=== PATIENT | male | born 1965 | race Caucasian/White ===

== ENCOUNTER → 2018-04-18 | Day surgery (SDC) | payer OTHER ==
[2018-04-17 15:04] LABS: BASOPHILS # (AUTO) 0.1 (0.0-0.1); BASOPHILS % 0.8 % (0.0-1.0); EOSINOPHILS # (AUTO) 0.1 (0.0-0.4); EOSINOPHILS % 1.4 % (0.0-6.0); HEMATOCRIT 42.4 % (38.2-49.6); LYMPHOCYTES # (AUTO) 1.4 (1.0-3.2); MONOCYTES # (AUTO) 0.5 (0.2-0.8); MONOCYTES % 7.7 % (4.4-11.3); NEUTROPHILS # (AUTO) 4.5 (2.1-6.9); NEUTROPHILS % 68.8 % (38.7-80.0); PLATELET COUNT 250 x10e3/uL (140-360); RED BLOOD COUNT 4.66 x10e6/uL (4.3-5.7); RED CELL DISTRIBUTION WIDTH 12.1 % (11.7-14.4)
[~2018-04-18] MED LIST: AMIODARONE HCL200 MG; BUPIVACAINE HCL 0.5% INJ 30 ML VIAL INJ ONE; BYSTOLIC10 MG PO; CEFAZOLIN SOD 1 GM VIAL ONE; DEXAMETHASONE SOD PHOS INJ 4 MG/ML VIAL ONE; FENTANYL CITRATE/PF 100MCG/2 ML INJ ONE; KETOROLAC TROMETHAMINE 30 MG/ML VIAL ONE; LIDOCAINE HCL 2% LOCAL INJ 5 ML SDV VIAL INJ ONE; MIDAZOLAM HCL 2 MG/2 ML VIAL ONE; MORPHINE SULFATE INJ 10 MG/ML ONE; NEOSTIGMINE 1 MG/ML 10ML VIAL ONE; ONDANSETRON HCL INJ 2 MG/ML VIAL ONE; PANTOPRAZOLE SO40 MG PO; PROPOFOL IV EMULSION 10 MG/ML 20 ML VIAL ONE; SEVOFLURANE INHAL SOLN 250 ML PEN BTL ONE; XARELTO20 MG; Z.0.LEXAPRO20 MG PO
--- NOTE | 2018-04-18 10:38 | Operative Report ---
DATE OF PROCEDURE: April 18, 2018 CLINICAL INFORMATICS PHYSICIAN: Chris Jerry PA-C The patient was brought to the operating room for induction of anesthesia. Throughout this case, my PA's assistance was necessary for retraction of soft tissue and positioning of the extremity. This allows for efficient and technically successful execution of the operation and is considered medically necessary. PREOPERATIVE DIAGNOSIS: Right ankle trimalleolar fracture. POSTOPERATIVE DIAGNOSIS: Right ankle trimalleolar fracture. PROCEDURE: Open reduction internal fixation of right ankle with syndesmosis repair. INDICATIONS: The patient is a 53-year-old gentleman who has a severe fracture of his right ankle. We have discussed the findings and options and recommend surgical fixation. The risks and benefits were discussed. His presentation is complicated by the fact that he weighs 300 pounds. The added challenges have been discussed. He states he understands and wishes to proceed. DESCRIPTION OF PROCEDURE: The patient was brought to the operating room and placed under general anesthetic. His right lower extremity was prepped and draped in a sterile manner. A preoperative time out was performed. The extremity was exsanguinated and a proximal tourniquet was inflated to 350 mmHg. Initial attention was directed towards the distal fibula. A long incision was made over the lateral aspect of the lower leg. The fracture site was carefully exposed. A lobster claw reduction clamp was used to reduce the fracture. An 8-hole, 3.5 mm dynamic compression plate was placed over the distal fibula. This was gently contoured to the match the flare of the distal fibula. This was fixed with a combination of compression and locking screws. An anterior to posterior lag screw was placed. Some mild displacement persisted due to the fragmentation of the fracture. This wound was irrigated and loosely reapproximated with subcuticular Vicryl. Attention was directed towards the medial malleolus. A curvilinear incision was made over the medial aspect of the ankle. Limited soft tissue stripping was performed. The fracture was debrided and anatomically reduced. This was fixed with 2 partially threaded 40 mm cancellous screws. Intraoperative x-rays were taken. There was a near anatomic reduction of the distal fibula and medial malleolus. There was widening of the medial clear space. I elected to place an Arthrex tight-rope syndesmosis repair system. The endo-button was passed over the medial cortex. The ankle was cycled and tension was applied. Repeat x-ray showed modest improvement in the closer of the medial clear space. Both of the wounds were then irrigated and closed with subcuticular Vicryl and nylon stitches. A well-padded splint was applied. The patient was extubated and transported to the recovery room in stable condition. Blood loss was minimal. All needle and sponge counts were correct. Job#: [id number] BENITO
== END | disposition home or self-care (01) ==
LOC: OR 06:48
PROVIDERS: ATTEND Specialist
DX: S82.851A Displaced trimalleolar fracture of right lower leg, initial encounter for closed fracture (principal); I48.91 Unspecified atrial fibrillation; G47.33 Obstructive sleep apnea (adult) (pediatric); I10 Essential (primary) hypertension; K75.9 Inflammatory liver disease, unspecified; K44.9 Diaphragmatic hernia without obstruction or gangrene; K21.9 Gastro-esophageal reflux disease without esophagitis; W22.8XXA Striking against or struck by other objects, initial encounter; Y92.007 Garden or yard of unspecified non-institutional (private) residence as the place of occurrence of the external cause; Z91.041 Radiographic dye allergy status; Z01.812 Encounter for preprocedural laboratory examination; Z79.02 Long term (current) use of antithrombotics/antiplatelets; Z68.41 Body mass index [BMI] 40.0-44.9, adult; Z86.718 Personal history of other venous thrombosis and embolism
CPT/HCPCS: 27822; 36415; 85025; C1713 ×6; J0690; J1100; J1885; J2001; J2250; J2270; J2405; J2710

== ENCOUNTER → 2018-10-17 | Day surgery (SDC) | payer OTHER ==
[2018-10-16 13:45] LABS: BASOPHILS % 0.6 % (0.0-1.0); EOSINOPHILS # (AUTO) 0.1 (0.0-0.4); EOSINOPHILS % 2.1 % (0.0-6.0); HEMATOCRIT 41.5 % (38.2-49.6); HEMOGLOBIN 13.4 g/dL (14.0-18.0); LYMPHOCYTES # (AUTO) 1.3 (1.0-3.2); MEAN CORPUSCULAR HEMOGLOBIN 29.8 pg (28-32); MEAN CORPUSCULAR HGB CONC 32.3 g/dL (31-35); MEAN CORPUSCULAR VOLUME 92.4 fL (81-99); MONOCYTES # (AUTO) 0.6 (0.2-0.8); MONOCYTES % 11.6 % (4.4-11.3); NEUTROPHILS # (AUTO) 3.2 (2.1-6.9); NEUTROPHILS % 60.5 % (38.7-80.0); PLATELET COUNT 187 x10e3/uL (140-360); RED BLOOD COUNT 4.49 x10e6/uL (4.3-5.7); RED CELL DISTRIBUTION WIDTH 13.1 % (11.7-14.4)
[2018-10-16 13:59] LABS: INR 1.52; PROTHROMBIN TIME 19.6 seconds (11.9-14.5)
[2018-10-16 14:00] LABS: PARTIAL THROMBOPLASTIN TIME 36.7 seconds (23.8-35.5)
[2018-10-16 14:02] LABS: ANION GAP 15.2 mmol/L (8-16); BLOOD UREA NITROGEN 14 mg/dL (7-26); BUN/CREATININE RATIO 12 (6-25); CALCIUM 8.7 mg/dL (8.4-10.2); CARBON DIOXIDE 26 mmol/L (22-29); CHLORIDE 102 mmol/L (98-107); CREATININE, SERUM 1.19 mg/dL (0.72-1.25); EST GLOMERULAR FILTRATION RATE > 60 ML/MIN (60-); GLUCOSE 83 mg/dL (74-118); POTASSIUM 4.2 mmol/L (3.5-5.1); SODIUM 139 mmol/L (136-145)
--- NOTE | 2018-10-16 14:48 | Diagnostic Imaging Report ---
EXAMINATION: PA and lateral views of the chest. COMPARISON: None CLINICAL HISTORY: Preoperative evaluation DISCUSSION: Lines/tubes: None. Lungs: The lungs are well inflated and clear. No pneumonia or pulmonary edema. Pleura: No pleural effusion or pneumothorax. Heart and mediastinum: Cardiomegaly. Bones and soft tissues: No acute bony abnormalities. IMPRESSION: Cardiomegaly without decompensation Signed by: Dr. Mario Ma M.D. on 10/16/2018 2:44 PM
[~2018-10-17] VITALS: Ht 182.9 cm; Wt 136.1 kg
[~2018-10-17] MED LIST changes: +ALBUTEROL SULF 0.083% NEB SOLN 3 ML NEB ONE; -AMIODARONE HCL200 MG; +AMIODARONE HCL200 MG PO; +BENZOCAINE 20% SPR 60 ML CAN ONE; -BUPIVACAINE HCL 0.5% INJ 30 ML VIAL INJ ONE; -CEFAZOLIN SOD 1 GM VIAL ONE; -DEXAMETHASONE SOD PHOS INJ 4 MG/ML VIAL ONE; +FUROSEMIDE40 MG PO; -KETOROLAC TROMETHAMINE 30 MG/ML VIAL ONE; +METOPROLOL TART25 MG PO; -MORPHINE SULFATE INJ 10 MG/ML ONE; -NEOSTIGMINE 1 MG/ML 10ML VIAL ONE; -ONDANSETRON HCL INJ 2 MG/ML VIAL ONE; +POTASSIUM CHLO10 ME1 PO; -SEVOFLURANE INHAL SOLN 250 ML PEN BTL ONE; +SODIUM CHLORIDE 0.9% 1000ML 1,000 ML ONE; -XARELTO20 MG; +XARELTO20 MG PO
--- OUTSIDE RECORDS SUMMARY | 2018-10-17 06:58 | XMS REPORT | Clinical Summary ---
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 Active rivaroxaban (XARELTO) 20 Take 20 mg by 0 mg tablet mouth daily. Active amIODarone (PACERONE) 200 Take 200 mg 0 MG tablet by mouth 2 (two) times a day. 05/11/2018 Discontinued pentazocine-naloxone Take 1 tablet 0 (TALWIN NX) 50-0.5 mg per by mouth tablet every 4 (four) hours as needed for mild pain. 05/11/2018 Discontinued escitalopram (LEXAPRO) 10 Take 10 mg by 0 MG tablet mouth daily. Active Problems Not on file Encounters Care Team Description Date Type Specialty Mehul Taveras MD Ep cardioversion w brook [57778 (CPT)] 05/11/2018 Surgery Procedural Cardiology Mehul Taveras MD Atrial fibrillation, unspecified type 05/11/2018 Hospital Procedural Cardiology Encounter Mehul Taveras MD AF (atrial fibrillation) 05/11/2018 Hospital Procedural Cardiology Encounter Mehul Taveras MD AF (atrial fibrillation) 02/16/2018 Hospital Procedural Cardiology Encounter Mehul Taveras MD Ep cardioversion w brook [88945 (CPT)] 02/16/2018 Surgery Procedural Cardiology Mehul Taveras MD Atrial fibrillation, unspecified type 02/16/2018 Hospital Procedural Cardiology Encounter after 10/16/2017 Social History Date Tobacco Use Types Packs/Day Years Used Never Smoker Smokeless Tobacco: Snuff Current User Alcohol Use Drinks/Week oz/Week Comments Defer Sex Assigned at Date Recorded Not on file Industry Job Start Date Occupation Not on file Not on file Not on file Travel End Travel History Travel Start No recent travel history available. Last Filed Vital Signs Time Taken Vital Sign Reading 05/11/2018 12:53 PM CDT Blood Pressure 129/61 05/11/2018 12:53 PM CDT Pulse 62 - Temperature - 05/11/2018 12:53 PM CDT Respiratory Rate 16 05/11/2018 12:53 PM CDT Oxygen Saturation 93% - Inhaled Oxygen - Concentration 05/11/2018 11:00 AM CDT Weight 132 kg (290 lb) 05/11/2018 11:00 AM CDT Height 182.9 cm (6') 05/11/2018 11:00 AM CDT Body Mass Index 39.33 Plan of Treatment Health Maintenance Due Date Last Done Comments COLON CANCER SCREENING 2013 SHINGLES VACCINES (1 of 2013 2) INFLUENZA VACCINE 04/19/2018 Procedures Comments Procedure Name Priority Date/Time Associated Diagnosis EP CARDIOVERSION W BROOK Routine 05/11/2018 AF (atrial fibrillation) 12:14 PM CDT ECHOCARDIOGRAM Routine 05/11/2018 Atrial fibrillation, TRANSESOPHAGEAL 12:14 PM CDT unspecified type ZZESTIMATED GFR Routine 05/11/2018 11:17 AM CDT PARTIAL THROMBOPLASTIN Routine 05/11/2018 TIME (PTT) 11:17 AM CDT PROTHROMBIN TIME WITH INR Routine 05/11/2018 11:17 AM CDT BASIC METABOLIC PANEL Routine 05/11/2018 11:17 AM CDT CV TRANESOPHAGEAL ECHO W Routine 02/16/2018 Atrial fibrillation, POSSIBLE CARDIOVERSION 1:02 PM CDT unspecified type EP CARDIOVERSION W BROOK Routine 02/16/2018 AF (atrial fibrillation) 1:02 PM CDT ZZESTIMATED GFR STAT 02/16/2018 12:30 PM CDT PROTHROMBIN TIME WITH INR STAT 02/16/2018 12:30 PM CDT PARTIAL THROMBOPLASTIN STAT 02/16/2018 TIME (PTT) 12:30 PM CDT HC COMPLETE BLD COUNT STAT 02/16/2018 W/AUTO DIFF 12:30 PM CDT BASIC METABOLIC PANEL STAT 02/16/2018 12:30 PM CDT after 10/16/2017 Results * Cv electrophysiology procedure (05/11/2018 12:14 PM CDT) Narrative Performed At Performing Organization Address [facility] Phone Number [facility] [address] [place] [address] * Echocardiogram transesophageal (05/11/2018 12:14 PM CDT) MAX Pred HR 164.74 [facility] 85 of MPHR 140.03 [facility] Calc MPHR 164.74 bpm [facility] Pred Exer Dur R1 9.43 [facility] Pred METS R1 9.71 [facility] Narrative Performed At [facility] The left ventricle chamber size is normal. Left atrium size is moderately dilated. No pericardial effusion There is mild mitral valve regurgitation. There is a mass suggestive of a thrombus within the left atrial appendage. Performing Organization Address [facility] Phone Number [facility] [address] [place] [address] * Estimated GFR (05/11/2018 11:17 AM CDT) Only the most recent of 2 results within the time period is included. GFR Non Af Amer 69 mL/min/1.73 m2 [facility] OF PATHOLOGY AND GENOMIC MEDICINE GFR Af Amer 84 mL/min/1.73 m2 [facility] OF Comment: PATHOLOGY AND Chronic kidney disease: <60 GENOMIC MEDICINE mL/min/1.73m2 Kidney failure: <15 mL/min/1.73m2 The estimated GFR is calculated from the IDMS-traceable Modification of Diet in Renal Disease Equation. The accuracy of the calculation is poor when the creatinine is normal. Calculated values >90 mL/min/1.73m2 are not reported. This equation has not been validated in children (<18 years), women, the elderly (>70 years), or ethnic groups other than Caucasians and Americans. Specimen Plasma specimen Performing Organization Address [facility]/[place] [address] PATHOLOGY AND Dwllr MEDICINE * Partial thromboplastin time, activated (05/11/2018 11:17 AM CDT) Only the most recent of 2 results within the time period is included. PTT 27.7 23.0 - 36.0 sec [facility] OF Comment: PATHOLOGY AND PTT therapeutic range for GENOMIC MEDICINE unfractionated heparin is 61.0-112.0 seconds which corresponds to Anti-Xa 0.3-0.7 U/ml. Note:Change in Panic Value The PTT Panic Value is changing from 110 sec. to 100 sec. due to new instrumentation and reagents. Correlation studies have been performed to validate this result. Specimen Blood Performing Organization Address [facility] [place] [address] PATHOLOGY AND Dw[facility]r [facility] * Prothrombin time with INR (05/11/2018 11:17 AM CDT) Only the most recent of 2 results within the time period is included. Prothrombin time 15.3 (H) 12.0 - 15.0 sec [facility] OF PATHOLOGY AND Dwllr MEDICINE INR 1.19 (H) 0.92 - 1.12 [facility] OF Comment: PATHOLOGY AND For patients on anticoagulant GENOMIC MEDICINE therapy, reference ranges below: Indication: INR Value Treatment of Venous Thrombosis, 2.0-3.0 pulmonary emboli, or prophylaxis of a venous thrombosis, or systemic emboli. High dose, high risk patients 3.0-4.5 with mechanical valves. NOTE:INR values over 3.0 are sometimes associated with gastrointestinal hemorrhage, especially values over 4.0. Specimen Blood Performing Organization Address [facility] Phone Number [place] [phone] PATHOLOGY AND Dwllr [facility] * Basic metabolic panel (05/11/2018 11:17 AM CDT) Only the most recent of 2 results within the time period is included. Sodium 141 135 - 150 mEq/L [facility] OF PATHOLOGY AND GENOMIC MEDICINE Potassium 4.6 3.5 - 5.0 mEq/L [facility] PATHOLOGY AND GENOMIC MEDICINE Chloride 102 98 - 112 mEq/L [facility] PATHOLOGY AND GENOMIC MEDICINE CO2 28 24 - 31 mmol/L [facility] OF PATHOLOGY AND GENOMIC MEDICINE Anion gap 11@ANIO 7 - 15 mEq/L [facility] OF PATHOLOGY AND GENOMIC MEDICINE BUN 9 7 - 18 mg/dL [facility] PATHOLOGY AND GENOMIC MEDICINE Creatinine 1.10 0.70 - 1.20 mg/dL [facility] OF PATHOLOGY AND GENOMIC MEDICINE Glucose 107 (H) 65 - 100 mg/dL [facility] OF PATHOLOGY AND GENOMIC MEDICINE Calcium 8.3 8.3 - 10.2 mg/dL [facility] OF PATHOLOGY AND GENOMIC MEDICINE Specimen Plasma specimen Performing Organization Address City/State/Zipcode Phone Number [facility] [place] [address] [place] [address] PATHOLOGY AND GENOMIC MEDICINE * Echocardiogram transesophageal for cardioversion (02/16/2018 1:02 PM CDT) MAX Pred HR 164.97 [facility] 85 of MPHR 140.23 [facility] Calc MPHR 164.97 bpm [facility] Pred Exer Dur R1 9.47 [facility] Pred METS R1 9.75 [facility] Narrative Performed At Performing Organization Address City/[facility] Phone Number [facility] [address] [place] [address] * Cv electrophysiology procedure (02/16/2018 1:02 PM CDT) Narrative Performed At Performing Organization Address [facility] Phone Number [facility] [address] [place] [address] * CBC with platelet and differential (02/16/2018 12:30 PM CDT) WBC 6.4 4.2 - 11.0 k/uL [facility] OF PATHOLOGY AND GENOMIC MEDICINE RBC 4.84 4.04 - 5.86 m/uL [facility] OF PATHOLOGY AND GENOMIC MEDICINE HGB 14.2 13.0 - 17.3 g/dL [facility] OF PATHOLOGY AND GENOMIC MEDICINE HCT 44.1 34.0 - 45.0 % [facility] OF PATHOLOGY AND GENOMIC MEDICINE MCV 91.1 80.0 - 98.0 fL [facility] OF PATHOLOGY AND GENOMIC MEDICINE MCH 29.3 27.0 - 34.0 pg [facility] OF PATHOLOGY AND GENOMIC MEDICINE MCHC 32.2 31.5 - 36.5 g/dL [facility] OF PATHOLOGY AND GENOMIC MEDICINE RDW - SD 40.3 37.0 - 51.0 fL [facility] OF PATHOLOGY AND GENOMIC MEDICINE MPV 10.7 (H) 7.4 - 10.4 fL [facility]OLOGY AND GENOMIC MEDICINE Platelet count 184 150 - 400 k/uL [facility] OF PATHOLOGY AND GENOMIC MEDICINE Nucleated RBC 0.00 /100 WBC [facility] OF PATHOLOGY AND GENOMIC MEDICINE Neutrophils 63.5 36.0 - 66.0 % [facility] OF PATHOLOGY AND GENOMIC MEDICINE Lymphocytes 24.3 24.0 - 44.0 % [facility] OF PATHOLOGY AND GENOMIC MEDICINE Monocytes 8.4 (H) 0.0 - 6.0 % [facility] OF PATHOLOGY AND GENOMIC MEDICINE Eosinophils 2.7 0.0 - 6.0 % [facility] OF PATHOLOGY AND GENOMIC MEDICINE Basophils 0.6 0.0 - 1.2 % [facility] OF PATHOLOGY AND GENOMIC MEDICINE Immature granulocytes 0.5 0.0 - 1.0 % [facility] OF PATHOLOGY AND GENOMIC MEDICINE Specimen Blood Performing Organization Address City/State/Zipcode Phone Number [facility] [place] [address] [place] [address] PATHOLOGY AND GENOMIC MEDICINE after 10/16/2017 Insurance Payer Benefit Subscriber ID Type Phone Address Plan / Group AETNA AETNA xxxxxxxxxx HMO HMO,POS,EP O, MC/EC Advance Directives Patient has advance care planning documents on file. For more information, kamari macario contact: Raymond Mar [address] [place] [address]
--- OUTSIDE RECORDS SUMMARY | 2018-10-17 06:58 | XMS REPORT ---
[facility] Address Unknown Phone Unavailable Care Team Providers Care Touring Production Manager Name Role Phone ELIANA TINOCO Unavailable Unavailable Problems This patient has no known problems. Allergies, Adverse Reactions, Alerts This patient has no known allergies or adverse reactions. Medications This patient has no known medications. 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 COMPAR GRETEL: None CLINICAL HISTORY: Preoperative evaluation DISCUSSION: Lines/tubes: None. Lungs: The lungs are well inflated and clear. No pneumonia or pulmonary edema. Pleura: No pleural effusion or pneumothorax. Heart and mediastinum: Cardiomegaly. Bones and soft tissues: No acute bony abnormalities. IMPRESSION: Cardiomegaly without decompensation Signed by: Dr. Chidi Farmer M.D. on 10/16/2018 2:44 PM Dictated By: CHIDI FARMER MD [id number] Transcribed By: ELIZABETH on 10/16/18 1444 COPY TO: ELIANA TINOCO MD
[2018-10-17 07:22] VITALS: BP 141/91
[2018-10-17 09:50] VITALS: BP 93/63
--- NOTE | 2018-10-18 13:10 | Cardiology Report ---
DATE OF STUDY: October 17, 2018 TRANSESOPHAGEAL ECHOCARDIOGRAM INDICATIONS: Rule out thrombus prior to cardioversion. Atrial fibrillation. DESCRIPTION OF PROCEDURE: After informed consent, patient was brought to the endoscopy suite and placed on the table. His throat was sprayed with Cetacaine spray. Patient was anesthetized by the anesthesiologist. A transesophageal probe was passed without any difficulty, and images were obtained in the usual fashion. Patient tolerated the procedure without any complications. REPORT: 1. Left ventricle: Is of normal size and systolic function. Overall estimated ejection fraction is about 55%. There appears to be mild concentric LVH. 2. Left atrium: Appears to be dilated. There is no spontaneous echo contrast or thrombus seen in the left atrium or left atrial appendage. 3. Right atrium: Normal size. 4. Right ventricle: Is of normal size and function. 5. Mitral valve: Structurally normal with adequate valvular excursion. Moderate mitral regurgitation is noted. No vegetation is seen on the mitral valve leaflets. 6. Tricuspid valve: Structurally normal with adequate valvular excursion. No vegetation is seen on the tricuspid valve leaflets. Trace tricuspid regurgitation is noted. 7. Aortic valve: Structurally normal with adequate valvular excursion. No vegetation is seen on the aortic valve leaflets. No aortic insufficiency or stenosis is noted. 8. Pulmonic valve: Structurally normal with adequate valvular excursion. No vegetation is seen on the pulmonic valve leaflets. No pulmonic regurgitation is noted. 9. Others: No left to right shunt seen on color flow Doppler across the interatrial septum. There appears to be a right to left shunt across the interatrial septum on contrast injection suggestive of a patent foramen ovale. No pericardial effusion is noted. 10. Aorta: No significant atherosclerotic plaquing at the aorta is noted. CONCLUSION: 1. Left ventricle normal size and systolic function. 2. The overall estimated ejection fraction is about 55%. 3. Moderate mitral regurgitation is noted. 4. Trace tricuspid regurgitation is noted. 5. No intracardiac thrombi or vegetations noted. 6. There is a suggestion of right to left shunt across the interatrial septum on contrast injection suggestive of a patent foramen ovale. 7. No pericardial effusion is noted. Job#: [id number] EV
--- NOTE | 2018-10-18 13:58 | Operative Report ---
DATE OF PROCEDURE: October 17, 2018 PROCEDURE PERFORMED: Synchronized cardioversion. INDICATIONS: Atrial fibrillation. DESCRIPTION OF PROCEDURE: After informed consent, the patient was brought to the endoscopy suite. He underwent a transesophageal echocardiogram. There was no evidence of intracardiac thrombus. Paddles were placed on the patient's chest. Synchronized cardioversion was performed at 120-150 joules. However, the patient did not convert to sinus rhythm. He remained in atrial fibrillation. Job#: [id number] BENITO
== END | disposition home or self-care (01) ==
LOC: CATH LAB 06:56 → EDSTATUS 09:00
DX: I48.91 Unspecified atrial fibrillation (principal); I34.0 Nonrheumatic mitral (valve) insufficiency; I10 Essential (primary) hypertension; I07.1 Rheumatic tricuspid insufficiency; K21.9 Gastro-esophageal reflux disease without esophagitis; Z01.810 Encounter for preprocedural cardiovascular examination; Z01.812 Encounter for preprocedural laboratory examination; Z01.818 Encounter for other preprocedural examination; Z86.19 Personal history of other infectious and parasitic diseases
CPT/HCPCS: 36415; 71046; 80048; 85025; 85610; 85730; 92960; 93005 ×2; 93312; 93320; 93325; J2001; J2250; J2704; J7030

== ENCOUNTER 2021-05-08 21:26 | Emergency (ER) | payer BC, OTHER ==
[~2021-05-08] VITALS: Ht 182.9 cm; Wt 163.3 kg
[~2021-05-08 21:26] MED LIST changes: -ALBUTEROL SULF 0.083% NEB SOLN 3 ML NEB ONE; -BENZOCAINE 20% SPR 60 ML CAN ONE; -FENTANYL CITRATE/PF 100MCG/2 ML INJ ONE; -LIDOCAINE HCL 2% LOCAL INJ 5 ML SDV VIAL INJ ONE; -MIDAZOLAM HCL 2 MG/2 ML VIAL ONE; -PROPOFOL IV EMULSION 10 MG/ML 20 ML VIAL ONE; -SODIUM CHLORIDE 0.9% 1000ML 1,000 ML ONE
[2021-05-08 22:10] LABS: BASOPHILS # (AUTO) 0.1 (0.0-0.1); BASOPHILS % 0.5 % (0.0-1.0); EOSINOPHILS % 0.1 % (0.0-6.0); HEMATOCRIT 35.8 % (38.2-49.6); HEMOGLOBIN 11.1 g/dL (14.0-18.0); LYMPHOCYTES # (AUTO) 1.6 (1.0-3.2); LYMPHOCYTES % 12.3 % (18.0-39.1); MEAN CORPUSCULAR HEMOGLOBIN 28.7 pg (28-32); MEAN CORPUSCULAR VOLUME 92.5 fL (81-99); MONOCYTES # (AUTO) 1.2 (0.2-0.8); MONOCYTES % 9.1 % (4.4-11.3); NEUTROPHILS % 77.5 % (38.7-80.0); PLATELET COUNT 203 x10e3/uL (140-360); RED BLOOD COUNT 3.87 x10e6/uL (4.3-5.7)
[2021-05-08] MEDS ORDERED: SODIUM CHLORIDE 0.9% 1000ML 1,000 ML ONE (22:13)
[2021-05-08] MEDS ORDERED: SODIUM CHLORIDE 0.9% 1000ML 1,000 ML IV ONE (22:15)
[2021-05-08 22:17] LABS: INR 1.53; PROTHROMBIN TIME 18.7 seconds (11.9-14.5)
[2021-05-08 22:27] LABS: ALBUMIN 2.9 g/dL (3.5-5.0); ALBUMIN/GLOBULIN RATIO 0.9 (0.8-2.0); ANION GAP 16.3 mmol/L (8-16); CALCIUM 8.3 mg/dL (8.4-10.2); POTASSIUM 4.3 mmol/L (3.5-5.1)
[2021-05-08 22:34] LABS: CREATINE KINASE MB 1.3 ng/mL (0-5.0)
[2021-05-08] MEDS ORDERED: METOPROLOL TARTRATE INJ 1 MG/ML VIAL IV ONE (23:30)
[2021-05-09] MEDS ORDERED: METOPROLOL TARTRATE INJ 1 MG/ML VIAL IV ONE (02:00)
[2021-05-09 02:20] VITALS: BP 111/87
== END 2021-05-09 02:54 | disposition other institution (70) ==
LOC: ER 22:03
DX: R04.0 Epistaxis (principal); S02.2XXA Fracture of nasal bones, initial encounter for closed fracture; W19.XXXA Unspecified fall, initial encounter; I48.91 Unspecified atrial fibrillation
CPT/HCPCS: 36415; 70486; 80053; 82550; 82553; 84484; 85025; 85610; 85730; 86850; 86900; 93005; 99284; J7030